=== PATIENT | female | born 1955 | race American Indian/Alaskan Native ===

== ENCOUNTER 2016-11-28 00:14 | Inpatient (IN) | payer SELFPAY ==
[2016-11-28 01:08] LABS: Basophils % (Auto) 1.8 % (0.0-1.8); Eosinophils % (Auto) 1.5 % (0.0-4.3); Hematocrit 40.2 % (30.3-42.9); Hemoglobin 13.1 gm/dl (10.1-14.3); Mean Corpuscular HGB Conc 33 % (30-34); Mean Corpuscular Hemoglobin 29 pg (28-32); Mean Corpuscular Volume 89 fl (79-97); Platelet Count 291 K/mm3 (140-440); Red Cell Distribution Width 15.2 % (13.2-15.2); White Blood Count 8.9 K/mm3 (4.5-11.0)
[2016-11-28 01:22] LABS: BUN/Creatinine Ratio 25.71; Blood Urea Nitrogen 18 mg/dL (7-17); Calcium 9.2 mg/dL (8.4-10.2); Carbon Dioxide 30 mmol/L (22-30); Chloride 106.7 mmol/L (98-107); Glucose 110 mg/dL (65-100); Potassium 3.8 mmol/L (3.6-5.0); Sodium 147 mmol/L (137-145)
[2016-11-28 01:25] LABS: Anion Gap 14 mmol/L
[2016-11-28 01:47] LABS: INR 0.85 (0.87-1.13)
[2016-11-28 01:48] LABS: Partial Thromboplastin Time 25.7 Sec. (24.2-36.6)
[2016-11-28 02:22] LABS: Alanine Aminotransferase 49 units/L (7-56); Albumin 3.7 g/dL (3.9-5); Albumin/Globulin Ratio 1.1 %; Alkaline Phosphatase 122 units/L (35-129); Bilirubin,Total 0.4 mg/dL (0.1-1.2); Total Protein 7.2 g/dL (6.3-8.2)
[2016-11-28 02:24] LABS: Bilirubin,Direct < 0.2 mg/dL (0-0.2); Bilirubin,Indirect 0.2 mg/dL
--- NOTE | 2016-11-28 02:52 | Cat Scan Report ---
FINAL REPORT PROCEDURE: CT HEAD/BRAIN WO CON TECHNIQUE: Computerized tomography of the head was performed without contrast material. HISTORY: neuro deficits < 6hrs or sx present upon awakening dizziness COMPARISON: No prior studies are available for comparison. FINDINGS: Skull and scalp: Normal. Paranasal sinuses: Normal. Ventricles and subarachnoid spaces: Normal. Cerebrum: No evidence of hemorrhage, acute infarction or mass . Cerebellum and brainstem: No evidence of hemorrhage, acute infarction or mass. Vasculature: Normal. Comments: None. IMPRESSION: Normal Examination
--- NOTE | 2016-11-28 03:13 | Emergency Department Report ---
[id number]: AMS Time Seen by Provider: 11/28/16 01:54 Source: patient, family Mode of arrival: Ambulatory Limitations: No Limitations - History of Present Illness Initial Comments: 61-year-old female with no subcutaneous past medical history presents to the hospital complains of altered mental status 2 days. Patient is drowsy, slow to respond to questions. 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 They deny any no history of alcohol, drug abuse, or recent trauma or injury. Patient denies any pain. Alert and oriented 3. No aggravating or alleviating factors reported. - Related Data Home Medications Medication Instructions Recorded Confirmed Last Taken No Known Home Medications [No 11/28/16 11/28/16 Unknown Reported Home Medications] Allergies Allergy/AdvReac Type Severity Reaction Status Date / Time No Known Allergies Allergy Verified 11/26/13 10:50 ED Review of Systems ROS: Stated complaint: AMS Other details as noted in HPI Comment: All other systems reviewed and negative Other: Constitutional: No fevers chills Eyes: No eye pain visual changes ENT: No ear pain or throat pain Neck: Denies pain Respiratory: Denies cough wheezing shortness of breath Cardiovascular: Denies chest pain, palpitations GI: Denies abdominal pain, nausea, vomiting, diarrhea : Denies dysuria Musculoskeletal: Denies back pain Skin: Denies rash, lesions, erythema Neurologic: Denies headache, numbness, weakness Psychiatric: Denies suicidal ideation, hallucinations ED Past Medical Hx - Past Medical History Previous Medical History?: No - Surgical History Past Surgical History?: Yes Additional Surgical History: Fibroid tumors. Thyroid - Social History Smoking Status: Current Every Day Smoker Substance Use Type: None - Medications Home Medications: Home Medications Medication Instructions Recorded Confirmed Last Taken Type No Known Home Medications [No 11/28/16 11/28/16 Unknown History Reported Home Medications] ED Physical Exam - General Limitations: No Limitations - Other Other exam information: General: No limitations, patient is alert in no acute distress Head exam: Atraumatic, normocephalic Eyes exam: Normal appearance, pupils equal reactive to light, extraocular movements intact ENT: Moist mucous membrane, normal oropharynx Neck exam: Normal inspection, full range of motion, no meningismus nontender Respiratory exam: Clear to auscultation bilateral, no wheezes, rales, crackles Cardiovascular: Normal rate and rhythm, normal heart sounds Abdomen: Soft, nondistended, and nontender, with normal bowel sounds, no rebound, or guarding Extremity: Full range of motion normal inspection no deformity Back: Normal Inspection, full range of motion, no tenderness Neurologic: Drowsy, oriented x3, cranial nerves intact, no motor or sensory deficit, [id number] function intact Psychiatric: normal affect, normal mood Skin: Warm, dry, intact - Assessment Assessment Interval: Baseline - Level of Consciousness 1a. Level of Consciousness: not alert, arousable - LOC Questions 1b. LOC Questions: answers correctly - LOC Command 1c. LOC Commands: performs tasks correctly - Best Gaze 2. Best Gaze: normal - Visual 3. Visual: no visual loss - Facial Palsy 4. Facial Palsy: normal symmetrical movement - Motor Arm 5b. Motor Arm Right: no drift 5a. Motor Arm Left: no drift - Motor Leg 6a. Motor Leg Left: no drift 6b. Motor Leg Right: no drift - Limb Ataxia 7. Limb Ataxia: absent - Sensory 8. Sensory: normal - Best Language 9. Best Language: no aphasia - Dysarthria 10. Dysarthria: normal - Extinction and Inattention 11. Extinction/Inattention: no abnormality - Scoring Total Score: 1 Stroke Severity: Minor Stroke ED Course Vital Signs 11/28/16 11/28/16 11/28/16 00:32 02:00 02:07 Temperature 97.8 F 98.6 F Pulse Rate 69 Respiratory 20 Rate Blood Pressure 147/81 152/76 O2 Sat by Pulse 100 98 Oximetry 11/28/16 11/28/16 03:23 04:00 Temperature Pulse Rate 59 L 55 L Respiratory 11 L 14 Rate Blood Pressure 126/90 134/76 O2 Sat by Pulse 95 96 Oximetry - Lab Data Result diagrams: 11/28/16 00:51 11/28/16 00:51 Lab Results 11/28/16 11/28/16 11/28/16 Range/Units 00:51 00:51 00:51 WBC 8.9 (4.5-11.0) K/mm3 RBC 4.50 (3.65-5.03) M/mm3 Hgb 13.1 (10.1-14.3) gm/dl Hct 40.2 (30.3-42.9) % MCV 89 (79-97) fl MCH 29 (28-32) pg MCHC 33 (30-34) % RDW 15.2 (13.2-15.2) % Plt Count 291 (140-440) K/mm3 Lymph % (Auto) 24.1 (13.4-35.0) % [place] % (Auto) 8.8 H (0.0-7.3) % Eos % (Auto) 1.5 (0.0-4.3) % Baso % (Auto) 1.8 (0.0-1.8) % Lymph # 2.1 (1.2-5.4) K/mm3 [place]ergus # 0.8 (0.0-0.8) K/mm3 Eos # 0.1 (0.0-0.4) K/mm3 Baso # 0.2 H (0.0-0.1) K/mm3 Seg Neutrophils % 63.8 (40.0-70.0) % Seg Neutrophils # 5.7 (1.8-7.7) K/mm3 PT 11.5 L (12.2-14.9) Sec. INR 0.85 L (0.87-1.13) APTT 25.7 (24.2-36.6) Sec. Thrombin Time 18.0 (15.1-19.6) Sec. Sodium 147 H (137-145) mmol/L Potassium 3.8 (3.6-5.0) mmol/L Chloride 106.7 (98-107) mmol/L Carbon Dioxide 30 (22-30) mmol/L Anion Gap 14 mmol/L BUN 18 H (7-17) mg/dL Creatinine 0.7 (0.7-1.2) mg/dL Estimated GFR > 60 ml/min BUN/Creatinine Ratio 25.71 % Glucose 110 H (65-100) mg/dL Calcium 9.2 (8.4-10.2) mg/dL Total Bilirubin (0.1-1.2) mg/dL Direct Bilirubin (0-0.2) mg/dL Indirect Bilirubin mg/dL AST (5-40) units/L ALT (7-56) units/L Alkaline Phosphatase (35-129) units/L Ammonia (25-60) umol/L Troponin T < 0.010 (0.00-0.029) ng/mL Total Protein (6.3-8.2) g/dL Albumin (3.9-5) g/dL Albumin/Globulin Ratio % TSH (0.270-4.200) mlU/mL Free T4 (0.76-1.46) ng/dL Urine Color (Yellow) Urine Turbidity (Clear) Urine pH (5.0-7.0) Ur Specific [place] (1.003-1.030) Urine Protein (Negative) mg/dL Urine Glucose (UA) (Negative) mg/dL Urine Ketones (Negative) mg/dL Urine Blood (Negative) Urine Nitrite (Negative) Urine Bilirubin (Negative) Urine Urobilinogen (<2.0) mg/dL Ur Leukocyte Esterase (Negative) Urine WBC (Auto) (0.0-6.0) /HPF Urine RBC (Auto) (0.0-6.0) /HPF U Epithel Cells (Auto) (0-13.0) /HPF Urine Mucus /HPF Salicylates (2.8-20.0) mg/dL Urine Opiates Screen Urine Methadone Screen Acetaminophen (10.0-30.0) ug/mL Ur Barbiturates Screen Ur Phencyclidine Scrn Ur Amphetamines Screen U Benzodiazepines Scrn Urine Cocaine Screen U Marijuana (THC) Screen Drugs of Abuse Note Plasma/Serum Alcohol (0-0.07) gm% 11/28/16 11/28/16 11/28/16 Range/Units 02:03 02:25 02:25 WBC (4.5-11.0) K/mm3 RBC (3.65-5.03) M/mm3 Hgb (10.1-14.3) gm/dl Hct (30.3-42.9) % MCV (79-97) fl MCH (28-32) pg MCHC (30-34) % RDW (13.2-15.2) % Plt Count (140-440) K/mm3 Lymph % (Auto) (13.4-35.0) % [place] % (Auto) (0.0-7.3) % Eos % (Auto) (0.0-4.3) % Baso % (Auto) (0.0-1.8) % Lymph # (1.2-5.4) K/mm3 [place] # (0.0-0.8) K/mm3 Eos # (0.0-0.4) K/mm3 Baso # (0.0-0.1) K/mm3 Seg Neutrophils % (40.0-70.0) % Seg Neutrophils # (1.8-7.7) K/mm3 PT (12.2-14.9) Sec. INR (0.87-1.13) APTT (24.2-36.6) Sec. Thrombin Time (15.1-19.6) Sec. Sodium (137-145) mmol/L Potassium (3.6-5.0) mmol/L Chloride (98-107) mmol/L Carbon Dioxide (22-30) mmol/L Anion Gap mmol/L BUN (7-17) mg/dL Creatinine (0.7-1.2) mg/dL Estimated GFR ml/min BUN/Creatinine Ratio % Glucose (65-100) mg/dL Calcium (8.4-10.2) mg/dL Total Bilirubin 0.4 (0.1-1.2) mg/dL Direct Bilirubin < 0.2 (0-0.2) mg/dL Indirect Bilirubin 0.2 mg/dL AST 50 H (5-40) units/L ALT 49 (7-56) units/L Alkaline Phosphatase 122 (35-129) units/L Ammonia 32.0 (25-60) umol/L Troponin T (0.00-0.029) ng/mL Total Protein 7.2 (6.3-8.2) g/dL Albumin 3.7 L (3.9-5) g/dL Albumin/Globulin Ratio 1.1 % TSH 0.439 (0.270-4.200) mlU/mL Free T4 1.15 (0.76-1.46) ng/dL Urine Color (Yellow) Urine Turbidity (Clear) Urine pH (5.0-7.0) Ur Specific [place] (1.003-1.030) Urine Protein (Negative) mg/dL Urine Glucose (UA) (Negative) mg/dL Urine Ketones (Negative) mg/dL Urine Blood (Negative) Urine Nitrite (Negative) Urine Bilirubin (Negative) Urine Urobilinogen (<2.0) mg/dL Ur Leukocyte Esterase (Negative) Urine WBC (Auto) (0.0-6.0) /HPF Urine RBC (Auto) (0.0-6.0) /HPF U Epithel Cells (Auto) (0-13.0) /HPF Urine Mucus /HPF Salicylates (2.8-20.0) mg/dL Urine Opiates Screen Urine Methadone Screen Acetaminophen (10.0-30.0) ug/mL Ur Barbiturates Screen Ur Phencyclidine Scrn Ur Amphetamines Screen U Benzodiazepines Scrn Urine Cocaine Screen U Marijuana (THC) Screen Drugs of Abuse Note Plasma/Serum Alcohol (0-0.07) gm% 11/28/16 11/28/16 11/28/16 Range/Units 02:25 02:25 02:25 WBC (4.5-11.0) K/mm3 RBC (3.65-5.03) M/mm3 Hgb (10.1-14.3) gm/dl Hct (30.3-42.9) % MCV (79-97) fl MCH (28-32) pg MCHC (30-34) % RDW (13.2-15.2) % Plt Count (140-440) K/mm3 Lymph % (Auto) (13.4-35.0) % [place] % (Auto) (0.0-7.3) % Eos % (Auto) (0.0-4.3) % Baso % (Auto) (0.0-1.8) % Lymph # (1.2-5.4) K/mm3 [place] # (0.0-0.8) K/mm3 Eos # (0.0-0.4) K/mm3 Baso # (0.0-0.1) K/mm3 Seg Neutrophils % (40.0-70.0) % Seg Neutrophils # (1.8-7.7) K/mm3 PT (12.2-14.9) Sec. INR (0.87-1.13) APTT (24.2-36.6) Sec. Thrombin Time (15.1-19.6) Sec. Sodium (137-145) mmol/L Potassium (3.6-5.0) mmol/L Chloride (98-107) mmol/L Carbon Dioxide (22-30) mmol/L Anion Gap mmol/L BUN (7-17) mg/dL Creatinine (0.7-1.2) mg/dL Estimated GFR ml/min BUN/Creatinine Ratio % Glucose (65-100) mg/dL Calcium (8.4-10.2) mg/dL Total Bilirubin (0.1-1.2) mg/dL Direct Bilirubin (0-0.2) mg/dL Indirect Bilirubin mg/dL AST (5-40) units/L ALT (7-56) units/L Alkaline Phosphatase (35-129) units/L Ammonia (25-60) umol/L Troponin T (0.00-0.029) ng/mL Total Protein (6.3-8.2) g/dL Albumin (3.9-5) g/dL Albumin/Globulin Ratio % TSH (0.270-4.200) mlU/mL Free T4 (0.76-1.46) ng/dL Urine Color (Yellow) Urine Turbidity (Clear) Urine pH (5.0-7.0) Ur Specific [place] (1.003-1.030) Urine Protein (Negative) mg/dL Urine Glucose (UA) (Negative) mg/dL Urine Ketones (Negative) mg/dL Urine Blood (Negative) Urine Nitrite (Negative) Urine Bilirubin (Negative) Urine Urobilinogen (<2.0) mg/dL Ur Leukocyte Esterase (Negative) Urine WBC (Auto) (0.0-6.0) /HPF Urine RBC (Auto) (0.0-6.0) /HPF U Epithel Cells (Auto) (0-13.0) /HPF Urine Mucus /HPF Salicylates < 0.3 L (2.8-20.0) mg/dL Urine Opiates Screen Urine Methadone Screen Acetaminophen < 15.0 (10.0-30.0) ug/mL Ur Barbiturates Screen Ur Phencyclidine Scrn Ur Amphetamines Screen U Benzodiazepines Scrn Urine Cocaine Screen U Marijuana (THC) Screen Drugs of Abuse Note Plasma/Serum Alcohol < 0.01 (0-0.07) gm% 11/28/16 11/28/16 Range/Units 03:30 03:30 WBC (4.5-11.0) K/mm3 RBC (3.65-5.03) M/mm3 Hgb (10.1-14.3) gm/dl Hct (30.3-42.9) % MCV (79-97) fl MCH (28-32) pg MCHC (30-34) % RDW (13.2-15.2) % Plt Count (140-440) K/mm3 Lymph % (Auto) (13.4-35.0) % [place] % (Auto) (0.0-7.3) % Eos % (Auto) (0.0-4.3) % Baso % (Auto) (0.0-1.8) % Lymph # (1.2-5.4) K/mm3 [place] # (0.0-0.8) K/mm3 Eos # (0.0-0.4) K/mm3 Baso # (0.0-0.1) K/mm3 Seg Neutrophils % (40.0-70.0) % Seg Neutrophils # (1.8-7.7) K/mm3 PT (12.2-14.9) Sec. INR (0.87-1.13) APTT (24.2-36.6) Sec. Thrombin Time (15.1-19.6) Sec. Sodium (137-145) mmol/L Potassium (3.6-5.0) mmol/L Chloride (98-107) mmol/L Carbon Dioxide (22-30) mmol/L Anion Gap mmol/L BUN (7-17) mg/dL Creatinine (0.7-1.2) mg/dL Estimated GFR ml/min BUN/Creatinine Ratio % Glucose (65-100) mg/dL Calcium (8.4-10.2) mg/dL Total Bilirubin (0.1-1.2) mg/dL Direct Bilirubin (0-0.2) mg/dL Indirect Bilirubin mg/dL AST (5-40) units/L ALT (7-56) units/L Alkaline Phosphatase (35-129) units/L Ammonia (25-60) umol/L Troponin T (0.00-0.029) ng/mL Total Protein (6.3-8.2) g/dL Albumin (3.9-5) g/dL Albumin/Globulin Ratio % TSH (0.270-4.200) mlU/mL Free T4 (0.76-1.46) ng/dL Urine Color Yellow (Yellow) Urine Turbidity Clear (Clear) Urine pH 6.0 (5.0-7.0) Ur Specific [place] 1.021 (1.003-1.030) Urine Protein <15 mg/dl (Negative) mg/dL Urine Glucose (UA) Neg (Negative) mg/dL Urine Ketones Neg (Negative) mg/dL Urine Blood Neg (Negative) Urine Nitrite Neg (Negative) Urine Bilirubin Neg (Negative) Urine Urobilinogen 2.0 (<2.0) mg/dL Ur Leukocyte Esterase Neg (Negative) Urine WBC (Auto) 3.0 (0.0-6.0) /HPF Urine RBC (Auto) 4.0 (0.0-6.0) /HPF U Epithel Cells (Auto) < 1.0 (0-13.0) /HPF Urine Mucus Few /HPF Salicylates (2.8-20.0) mg/dL Urine Opiates Screen Presumptive negative Urine Methadone Screen Presumptive negative Acetaminophen (10.0-30.0) ug/mL Ur Barbiturates Screen Presumptive negative Ur Phencyclidine Scrn Presumptive negative Ur Amphetamines Screen Presumptive negative U Benzodiazepines Scrn Presumptive negative Urine Cocaine Screen Presumptive negative U Marijuana (THC) Screen Presumptive positive Drugs of Abuse Note Disclamer Plasma/Serum Alcohol (0-0.07) gm% - EKG Data -: EKG Interpreted by Me (sinus rhythm rate 66 rightward axis) When compared to previous EKG there are: previous EKG unavailable - Radiology Data Radiology results: report reviewed (CT head: Normal exam) - Medical Decision Making Plan to admit to the hospital for further assessment. Cause of acute mental status change not identified during ED evaluation - Differential Diagnosis encephalopathy, CVA, ICH, UTI, infection, drug abuse Critical Care Time: No Critical care attestation.: If time is entered above; I have spent that time in minutes in the direct care of this critically ill patient, excluding procedure time. ED Disposition Clinical Impression: Marijuana use Altered mental status Qualifiers: Altered mental status type: unspecified Qualified Code(s): R41.82 - Altered mental status, unspecified Disposition: OP ADMITTED IP TO THIS HOSP Is pt being admited?: Yes Condition: Stable Time of Disposition: 03:12 (Dr Rivera/hosp)
[2016-11-28 03:52] LABS: Urine Drugs of Abuse Note Disclamer
[2016-11-28 03:58] LABS: Bilirubin,Urine NEG (Negative); Blood,Urine NEG (Negative); Ketones,Urine NEG (Negative); Leukocyte Esterase,Urine NEG (Negative); Mucus,Urine FEW /HPF; Nitrite,Urine NEG (Negative); Protein,Urine <15 mg/dL mg/dL (Negative)
[2016-11-28] MEDS ORDERED: NACL 0.9% 1000 ML 1,000 ML IV ONE (04:00)
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
[2016-11-28] MEDS ORDERED: D5/0.45NS 1,000 ML IV SCH (05:00)
[2016-11-28] MEDS ORDERED: ZOFRAN IV PRN (06:27)
[2016-11-28] MEDS ORDERED: MILK OF MAGNESIA PO PRN (06:27)
[2016-11-28] MEDS ORDERED: TYLENOL PR PRN (06:27)
[2016-11-28] MEDS ORDERED: DULCOLAX PR PRN (06:27)
[2016-11-28] MEDS ORDERED: TYLENOL PO PRN (06:27)
[2016-11-28] MEDS: LOVENOX SUB-Q SCH (09:14)
--- NOTE | 2016-11-28 13:21 | Event Note ---
Date: 11/28/16 Patient seen and examined still mildly confused, and lethargic. She is on MRI this morning. Otherwise no acute distress noted..
[2016-11-28] MEDS ORDERED: PERCOCET 5/325 PO PRN (18:53)
[2016-11-29 07:37] LABS: Basophils % (Auto) 0.4 % (0.0-1.8); Eosinophils % (Auto) 2.7 % (0.0-4.3); Hematocrit 38.6 % (30.3-42.9); Hemoglobin 12.5 gm/dl (10.1-14.3); Mean Corpuscular HGB Conc 33 % (30-34); Mean Corpuscular Hemoglobin 29 pg (28-32); Mean Corpuscular Volume 90 fl (79-97); Platelet Count 281 K/mm3 (140-440); White Blood Count 8.9 K/mm3 (4.5-11.0)
[2016-11-29 07:55] LABS: Anion Gap 14 mmol/L; BUN/Creatinine Ratio 18.33; Blood Urea Nitrogen 11 mg/dL (7-17); Calcium 8.5 mg/dL (8.4-10.2); Carbon Dioxide 25 mmol/L (22-30); Chloride 103.6 mmol/L (98-107); Glucose 117 mg/dL (65-100); Sodium 139 mmol/L (137-145)
--- NOTE | 2016-11-29 09:27 | Magnetic Resonance Report ---
MRI BRAIN WITHOUT CONTRAST INDICATION: Altered mental status, slurred speech. COMPARISON: Head CT from earlier today. FINDINGS: Noncontrast multiplanar and multisequence MRI of the brain demonstrate symmetric, normal ventricles and sulci. Mild benign bilateral basal ganglia calcifications. Minimal periventricular FLAIR and T2 weighted hyperintensities. No acute infarct, hemorrhage, mass effect or midline shift. No abnormal extra-axial masses or fluid collections. Normal major intracranial vascular flow voids. Normal posterior fossa with symmetric seventh and eighth nerve complexes and preserved basilar cisterns. Unremarkable eye globes. Slight leftward nasal septal deviation and ethmoid sinusitis. Somewhat hypoplastic/aplastic bilateral frontal sinuses. Clear remainder aerated paranasal sinuses and mastoid air cells. Normal midline structures without evidence Chiari malformation. CONCLUSION: No acute intracranial MRI abnormality, as described. Thank you for the opportunity to participate in this patient's care.
[2016-11-29] MEDS: LOVENOX SUB-Q SCH (10:00)
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
[2016-11-29 13:07] VITALS: BP 157/90
== END 2016-11-29 17:09 | disposition home or self-care (01) | DRG 947 ==
LOC: ED 00:14 → 4A 04:27
PROVIDERS: ADMIT Internal Medicine; ATTEND Internal Medicine
DX: R41.82 Altered mental status, unspecified (principal); G93.41 Metabolic encephalopathy; E86.0 Dehydration; F12.90 Cannabis use, unspecified, uncomplicated; F17.200 Nicotine dependence, unspecified, uncomplicated; I10 Essential (primary) hypertension; Z82.49 Family history of ischemic heart disease and other diseases of the circulatory system
CPT/HCPCS: 36415; 70450; 70551; 80048; 80074; 80307; 80320; 81001; 82140; 84439; 84443; 84484; 85025; 85610; 85670; 85730; 93005; 93010; G0479; G0480; J1650

== ENCOUNTER 2018-08-07 04:34 | Emergency (ER) | payer SELFPAY ==
--- NOTE | 2018-08-07 07:42 | Emergency Department Report ---
[facility] Chief Complaint: Eye Problems Stated Complaint: LEFT EYE PAIN Time Seen by Provider: 08/07/18 07:21 Duration: Today Side: Left Severity: mild (1/10) Symptoms: Yes Eye Itching (left eye), Yes Eye Redness (left eye), Yes Eye Pain ( left eye 1/10), Yes Purulent Drainage, No Mucous Drainage, No Blurred Vision, No Preceding URI, No H/O Allergic Rhinitis, No Contact Lens Use, No Fever, No Headache Other History: Patient reports that she went to work today and he sent her home because left eye redness with drainage. She says she woke up this morning and her left eye was closed shut. She reports some burning pain at 1/10 but denies any restriction in movement of her eye. She says she was exposed to pinkeye from her grandchild. She said works sent her to the hospital to be cleared. Denies any loss in vision or blurred vision. Denies any foreign body feeling or trauma to her eyes. Denies any fever or chills. Denies any upper respiratory symptoms. ED Review of Systems ROS: Stated complaint: LEFT EYE PAIN Other details as noted in HPI Constitutional: denies: chills, fever Eyes: eye pain (/10), eye discharge (and redness). denies: vision change ENT: denies: ear pain, throat pain Respiratory: denies: cough, shortness of breath, SOB with exertion, SOB at rest , wheezing Cardiovascular: denies: chest pain, palpitations Gastrointestinal: denies: nausea, vomiting Musculoskeletal: denies: back pain, joint swelling, arthralgia Skin: denies: rash, lesions Neurological: denies: headache ED Past Medical Hx - Past Medical History Previous Medical History?: Yes Hx Hypertension: Yes Hx Congestive Heart Failure: No Hx Diabetes: No Hx Asthma: No Hx COPD: No Hx HIV: No - Surgical History Past Surgical History?: Yes Additional Surgical History: Fibroid tumors. Thyroid - Family History Family history: hypertension - Social History Smoking Status: Former Smoker Substance Use Type: None - Medications Home Medications: Home Medications Medication Instructions Recorded Confirmed Last Taken Type Gentamicin 0.3% Ophth Soln 2 drops OD Q8H 7 Days #1 bottle 08/07/18 Unknown Rx [facility] Exam - Exam General: Vital signs noted. No distress. Alert and acting appropriately. This is a 62-year-old female here reports that she has pinkeye. She is well- nourished well-developed and in no acute distress Eye Exam: Left Injection (redness.), Left EOMI (normal accommodation bilaterally ), Left Purulent Discharge, Neither Chemosis, Neither Abnormal Pupil, Neither Eye Foreign Body, Neither Lid Foreign Body, Neither Mucous Discharge, Neither Corneal Edema, Neither Photophobia HEENT: No Nasal Congestion (normal exam), No Pharyngeal Erythema (normal exam) Remainder of HEENT: Normal Lungs: Yes Clear Lung Sounds (they are to auscultate bilaterally no rhonchi wheezes or rales), No Good Air Exchange, No Wheezes, No Stridor, No Cough, No Nasal Flaring, No Retractions, No Use of Accessory Muscles Exam: Visual acuity is 20/25 both eyes, 20/40 OS and 20/50 OD. Patient and wear glasses that she does not have her glasses with her. ED Course Vital Signs 08/07/18 04:39 Temperature 98.5 F Pulse Rate 71 Respiratory 16 Rate Blood Pressure 159/93 O2 Sat by Pulse 97 Oximetry - Reevaluation(s) Reevaluation #1: 08/07/18 09:04 Patient stable throughout ED course. ED Medical Decision Making - Medical Decision Making 62-year-old female here to evaluated because she says she was sent home from work for [id number]. She was exposed from her grandchild's. Assessment/plan 1: Left conjunctivitis-visual acuity is stable. Please see exam note for details. She was not wearing her glasses when she took exam. I discussed the patient diagnosis and treatment plan I told her she needs to be out of work until she has been on antibiotic eyedrops for 2 days so she can go back to work on 08/09/2018. I discussed with her that this is contagious so she needs to change her living in, [facility] and if she were contacted she needs to not work contacts until after 7 days if completed antibiotic. She voiced understanding and discharged home in stable condition. Vital signs stable afebrile and she was given prescriptions for gentamicin ophthalmic. Critical care attestation.: If time is entered above; I have spent that time in minutes in the direct care of this critically ill patient, excluding procedure time. 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 Keep affected areas clean and dry Use antibiotic as prescribed If symptoms worsens, please return to the emergency room Referrals: CORNELIO ZELAYA MD [Primary Care Provider] - 08/09/18 DAMARIS PIZARRO MD [Staff Physician] - 08/09/18 [facility] [Outside] - 08/09/18 Forms: Work/School Release Form(ED)
[2018-08-07 09:24] VITALS: BP 150/87
== END 2018-08-07 09:23 | disposition home or self-care (01) ==
LOC: ED 04:34
DX: H10.32 Unspecified acute conjunctivitis, left eye (principal); I10 Essential (primary) hypertension; D25.9 Leiomyoma of uterus, unspecified; Z87.891 Personal history of nicotine dependence
CPT/HCPCS: 99282